=== PATIENT | female | born 1965 | race African-American/Black ===

== ENCOUNTER 2017-07-31 06:46 | Inpatient (IN) ==
[2017-07-31] MEDS ORDERED: INSULIN REGULAR 100 UNIT/ML IV STA ×2 (07:08→07:15)
[2017-07-31] MEDS ORDERED: SODIUM CHLORIDE 0.9% 600 ML IV STA (07:08)
[2017-07-31] MEDS ORDERED: INSULIN REGULAR 100 UNIT/ML ONE (07:11)
[2017-07-31] MEDS ORDERED: MAGNESIUM SULF RIDER 4 GM in PREMIX 1 EACH IV PRN (07:12)
[2017-07-31] MEDS ORDERED: SODIUM BICARB INJ 100 MEQ in STERILE WATER INJ 400 ML IV PRN (07:12)
[2017-07-31] MEDS ORDERED: DEXTROSE 50% 25 GM/50 ML VIAL IV PRN ×2 (07:12)
[2017-07-31] MEDS ORDERED: POTASSIUM CHLORIDE RIDER 10 MEQ in PREMIX 1 EACH IV PRN (07:12)
[2017-07-31] MEDS ORDERED: SODIUM CHLORIDE 0.9% 1,000 ML IV ONE (07:12)
[2017-07-31] MEDS ORDERED: SODIUM PHOSPHATE IV PRN (07:12)
[2017-07-31] MEDS ORDERED: INSULIN REGULAR 100 UNIT/ML IV ONE (07:12)
[2017-07-31] MEDS ORDERED: SODIUM CHLORIDE 0.9% IV PRN (07:12)
[2017-07-31] MEDS ORDERED: MAGNESIUM SULF RIDER 2 GM in PREMIX 1 EACH IV PRN (07:12)
[2017-07-31] MEDS ORDERED: SODIUM CHLORIDE 0.9% 2,000 ML IV STA (07:15)
[2017-07-31] MEDS ORDERED: SODIUM CHLORIDE 0.9% 1,000 ML IV STA (07:15)
[2017-07-31] MEDS ORDERED: ONDANSETRON 4 MG/2 ML VIAL ONE (07:21)
[2017-07-31] MEDS ORDERED: MORPHINE 2 MG/1 ML SYRINGE IV STA (07:21)
[2017-07-31] MEDS ORDERED: MORPHINE 2 MG/1 ML SYRINGE ONE (07:21)
[2017-07-31] MEDS ORDERED: ONDANSETRON 4 MG/2 ML VIAL IV STA (07:21)
[2017-07-31 07:31] LABS: Basophils % 0.1 % (0.0-0.8); Hematocrit 40.1 VOL% (35.7-47.0); Immature Granulocytes % 0.3 %; Immature Granulocytes Absolute 0.04 #; Lymphocytes % 6.6 % (21.3-54.2); Mean Corpuscular HGB Conc 32.4 GM/DL (32-36); Mean Corpuscular Hemoglobin 30 PG (27-34); Mean Corpuscular Volume 93.7 FL (87-102); Mean Platelet Volume 9.5 FL (9.6-12.0); Monocytes # 0.7 10*3/uL (0.11-0.8); Monocytes % 4.3 % (1.7-12.7); Neutrophils # 13.3 10*3/uL (1.4-7.4); Neutrophils % 88.7 % (38.7-73.9); Platelet Count 276 T/CUMM (130-400); Red Blood Count 4.28 MC/CUMM (3.8-5.5); Red Cell Distribution Width 11.3 % (9.3-17.3)
[2017-07-31 07:49] LABS: Apearance,Urine CLEAR (Clear); Bilirubin,Urine Negative (Negative); Blood, Urine Small mg/dL (Negative); Glucose,Urine (UA) >=500 mg/dL (Negative); Ketones,Urine 80 mg/dL (Negative); Mucus,Urine Occasional /LPF (Occasional); Nitrite,Urine Negative (Negative); Protein,Urine Negative; RBC,Urine <1 /HPF (0-4); Squamous Epithelial Cell,Urine Occasional /HPF (0-10); Urine Color Straw (Yellow); Urine Specific Gravity 1.024 (1.001-1.035); Urine Urobilinogen < 2.0 EU/DL (0.2-1.0); WBC,Urine <1 /HPF (0-6)
[2017-07-31 07:52] LABS: Calcium 8.2 MG/DL (8.5-10.1); Osmolality,Calculated 280.8 MOS/KG (273-304); Potassium 4.8 MMOL/L (3.5-5.1)
[2017-07-31] MEDS ORDERED: PROMETHAZINE INJ 12.5 MG in SODIUM CHLORIDE 0.9% 50 ML IV PRN (08:21)
[2017-07-31] MEDS ORDERED: INSULIN REGULAR DRIP 100 ML IV SCH (08:30)
[2017-07-31] MEDS: SODIUM CHLORIDE 0.9% 1,000 ML IV SCH ×2 (09:16→11:33)
[2017-07-31] MEDS: ENOXAPARIN 40 MG/0.4 ML SYRINGE SUBCUT SCH (09:16)
[2017-07-31] MEDS ORDERED: PHENOL 1.4% THROAT SPRAY 177 ML BOTTLE PO PRN (10:59)
[2017-07-31 12:07] LABS: Calcium 6.9 MG/DL (8.5-10.1); Osmolality,Calculated 277.1 MOS/KG (273-304); Potassium 4.2 MMOL/L (3.5-5.1)
[2017-07-31] MEDS ORDERED: SODIUM CHLORIDE 0.9% 1,000 ML IV SCH (12:13)
[2017-07-31] MEDS: CIPROFLOXACIN INJ 400 MG in PREMIX 1 EACH IV SCH (13:34)
[2017-07-31] MEDS: metroNIDAZOLE INJ 500 MG in PREMIX 1 EACH IV SCH ×2 (13:35→18:43)
[2017-07-31] MEDS: DEXTROSE 5% NACL 0.9% 1,000 ML IV SCH ×2 (13:35→18:25)
[2017-07-31 16:45] LABS: Osmolality,Calculated 271.1 MOS/KG (273-304); Potassium 3.8 MMOL/L (3.5-5.1)
[2017-07-31 20:33] LABS: Calcium 7.3 MG/DL (8.5-10.1); Osmolality,Calculated 273.8 MOS/KG (273-304); Potassium 3.1 MMOL/L (3.5-5.1)
[2017-07-31] MEDS: POTASSIUM CHLORIDE 20 MEQ TABLET PO PRN (21:04)
[2017-07-31 23:24] LABS: Calcium 7.2 MG/DL (8.5-10.1); Osmolality,Calculated 270.1 MOS/KG (273-304); Potassium 3.6 MMOL/L (3.5-5.1)
[2017-08-01] MEDS ORDERED: SODIUM CHLORIDE 0.45% 1,000 ML IV SCH (00:13)
[2017-08-01] MEDS ORDERED: DEXTROSE 50% 25 GM/50 ML VIAL IV PRN (00:50)
[2017-08-01] MEDS ORDERED: GLUCAGON 1 MG VIAL IM PRN ×2 (00:50→00:51)
[2017-08-01] MEDS: CIPROFLOXACIN INJ 400 MG in PREMIX 1 EACH IV SCH ×2 (01:06→11:07)
[2017-08-01] MEDS: metroNIDAZOLE INJ 500 MG in PREMIX 1 EACH IV SCH ×2 (01:06→05:27)
[2017-08-01] MEDS: HYDROmorphone 2 MG/1 ML VIAL IV PRN ×2 (01:07→08:49)
[2017-08-01] MEDS: INSULIN REGULAR 100 UNIT/ML SUBCUT SCH ×7 (01:22→21:12)
[2017-08-01] MEDS: DEXTROSE 5% NACL 0.9% 1,000 ML IV SCH (01:58)
[2017-08-01] MEDS: POTASSIUM CHLORIDE 20 MEQ TABLET PO PRN ×2 (03:35→05:42)
[2017-08-01] MEDS ORDERED: INSULIN REGULAR 100 UNIT/ML SUBCUT SCH (05:00)
[2017-08-01 05:14] LABS: Basophils % 0.1 % (0.0-0.8); Eosinophils # 0.1 10*3/uL (0.0-0.87); Eosinophils % 0.9 % (0.00-10.9); Hematocrit 32.5 VOL% (35.7-47.0); Hemoglobin 11.1 GM/DL (12.0-16.0); Immature Granulocytes % 0.2 %; Immature Granulocytes Absolute 0.02 #; Lymphocytes # 1.9 10*3/uL (1.4-4.0); Lymphocytes % 19.1 % (21.3-54.2); Mean Corpuscular HGB Conc 34.2 GM/DL (32-36); Mean Corpuscular Hemoglobin 31 PG (27-34); Mean Platelet Volume 9.2 FL (9.6-12.0); Monocytes # 0.8 10*3/uL (0.11-0.8); Monocytes % 7.5 % (1.7-12.7); Neutrophils # 7.3 10*3/uL (1.4-7.4); Neutrophils % 72.2 % (38.7-73.9); Platelet Count 222 T/CUMM (130-400); Red Blood Count 3.61 MC/CUMM (3.8-5.5); Red Cell Distribution Width 10.6 % (9.3-17.3); White Blood Count 10.1 T/CUMM (4-12)
[2017-08-01 05:33] LABS: Calcium 7.5 MG/DL (8.5-10.1)
[2017-08-01 05:34] LABS: Osmolality,Calculated 265.4 MOS/KG (273-304); Potassium 2.8 MMOL/L (3.5-5.1)
[2017-08-01] MEDS ORDERED: ALUM/MAG/SIMETH/LIDO VISC 1:1 30 ML BOTTLE PO ONE (08:42)
[2017-08-01] MEDS: ENOXAPARIN 40 MG/0.4 ML SYRINGE SUBCUT SCH (08:48)
[2017-08-01] MEDS: POTASSIUM CHLORIDE 20 MEQ TABLET PO SCH ×2 (08:59→10:00)
[2017-08-01] MEDS ORDERED: POTASSIUM PHOS/SOD PHOS POWDER 250 MG PACK PO SCH (09:00)
[2017-08-01] MEDS ORDERED: INFLUENZA VIRUS VACCINE 0.5 ML SYRINGE IM ONE (12:33)
[2017-08-01] MEDS: glipiZIDE 5 MG TABLET PO SCH ×2 (13:20→21:12)
[2017-08-01] MEDS: ASPIRIN EC 325 MG TABLET PO SCH (13:20)
[2017-08-01] MEDS ORDERED: POTASSIUM PHOSPHATE 30 MMOL in SODIUM CHLORIDE 0.9% 250 ML IV ONE (15:00)
[2017-08-01] MEDS: POTASSIUM CHLORIDE RIDER 10 MEQ in PREMIX 1 EACH IV SCH ×3 (15:18→21:12)
[2017-08-01] MEDS: ALUMINUM/MAGNES/SIMETH MAX STR 30 ML UDCUP PO PRN (17:27)
[2017-08-01] MEDS ORDERED: LOVASTATIN 20 MG TABLET PO SCH (21:00)
[2017-08-02] MEDS: POTASSIUM CHLORIDE RIDER 10 MEQ in PREMIX 1 EACH IV SCH (01:27)
[2017-08-02] MEDS ORDERED: ZALEPLON 5 MG CAPSULE PO PRN (01:33)
[2017-08-02 07:15] LABS: Albumin 2.5 G/DL (3.4-5.0); Calcium 7.9 MG/DL (8.5-10.1); Osmolality,Calculated 276.2 MOS/KG (273-304); Potassium 4.2 MMOL/L (3.5-5.1)
[2017-08-02] MEDS: ENOXAPARIN 40 MG/0.4 ML SYRINGE SUBCUT SCH (08:54)
[2017-08-02] MEDS: glipiZIDE 5 MG TABLET PO SCH (08:54)
[2017-08-02] MEDS: ASPIRIN EC 325 MG TABLET PO SCH (08:54)
[2017-08-02] MEDS: INSULIN REGULAR 100 UNIT/ML SUBCUT SCH ×2 (08:57→11:45)
[2017-08-02] MEDS ORDERED: NICOTINE 7 MG/24 HR PATCH TRANSDERM SCH (09:00)
[2017-08-02] MEDS: ALUMINUM/MAGNES/SIMETH MAX STR 30 ML UDCUP PO PRN (09:01)
[2017-08-02] MEDS ORDERED: FLUCONAZOLE 200 MG TABLET PO ONE (10:08)
[2017-08-02] MEDS ORDERED: INFLUENZA VIRUS VACCINE 0.5 ML SYRINGE IM ONE (11:03)
[2017-08-02 11:33] VITALS: BP 122/80
== END 2017-08-02 12:50 | disposition home or self-care (01) | DRG 637 ==
LOC: EDBD → EDUNIT# → N.ED 06:46 → SUPCPDRO 07:25 → N.EDINP 07:25 → N.ICU 07:55 → N.5E 08-01 11:43
PROVIDERS: ADMIT Internal Medicine Geriatric Medicine; ATTEND Internal Medicine Geriatric Medicine

== ENCOUNTER 2020-02-27 15:13 | Inpatient (IN) ==
[2020-02-27] MEDS ORDERED: SODIUM CHLORIDE 0.9% 2,000 ML IV STA (15:54)
[2020-02-27] MEDS ORDERED: ONDANSETRON 4 MG/2 ML VIAL IV STA (15:54)
[2020-02-27] MEDS ORDERED: HYDROmorphone 2 MG/1 ML VIAL IV STA (15:56)
[2020-02-27 16:25] LABS: Calcium 9.8 MG/DL (8.5-10.1); Osmolality,Calculated 310.5 MOS/KG (273-304)
[2020-02-27 16:28] LABS: Basophils # 0.1 10*3/uL (0.0-0.2); Basophils % 0.3 % (0.0-0.8); Hematocrit 44.8 VOL% (35.7-47.0); Hemoglobin 13.5 GM/DL (12.0-16.0); Immature Granulocytes % 1.2 %; Immature Granulocytes Absolute 0.29 #; Lymphocytes # 1.1 10*3/uL (1.4-4.0); Lymphocytes % 4.7 % (21.3-54.2); Mean Corpuscular HGB Conc 30.1 GM/DL (32-36); Mean Corpuscular Volume 99.6 FL (87-102); Mean Platelet Volume 10.4 FL (9.6-12.0); Monocytes % 4.6 % (1.7-12.7); Neutrophils % 89.2 % (38.7-73.9); Platelet Count 272 T/CUMM (130-400); Red Cell Distribution Width 12.6 % (9.3-17.3); White Blood Count 23.8 T/CUMM (4-12)
[2020-02-27] MEDS ORDERED: INSULIN REGULAR 100 UNIT/ML IV ONE ×2 (16:36→17:02)
[2020-02-27] MEDS ORDERED: MAGNESIUM SULF RIDER 4 GM in PREMIX 1 EACH IV PRN (17:02)
[2020-02-27] MEDS ORDERED: SODIUM CHLORIDE 0.9% 1,000 ML IV ONE (17:02)
[2020-02-27] MEDS ORDERED: DEXTROSE 50% 25 GM/50 ML VIAL IV PRN ×2 (17:02)
[2020-02-27] MEDS ORDERED: MAGNESIUM SULF RIDER 2 GM in PREMIX 1 EACH IV PRN (17:02)
[2020-02-27] MEDS ORDERED: SODIUM PHOSPHATE INJ 17 MMOL in SODIUM CHLORIDE 0.9% 250 ML IV PRN (17:02)
[2020-02-27] MEDS ORDERED: SODIUM BICARB INJ 100 MEQ in STERILE WATER INJ 400 ML IV PRN (17:02)
[2020-02-27 17:54] LABS: Band Neutrophils 6 % (0-10); Lymphocytes 4 % (20-55); Platelet Estimate Adequate; Segmented Neutrophils 86 % (50-85); Total Cells Counted 100
[2020-02-27 18:12] LABS: Bilirubin,Urine Negative (Negative); Blood, Urine Small mg/dL (Negative); Glucose,Urine (UA) >=500 mg/dL (Negative); Ketones,Urine 80 mg/dL (Negative); Mucus,Urine Occasional /LPF (Occasional); Nitrite,Urine Negative (Negative); Protein,Urine Negative; Urine Appearance CLEAR (Clear); Urine Color Straw (Yellow); Urine Specific Gravity 1.017 (1.001-1.035); Urine Urobilinogen < 2.0 EU/DL (0.2-1.0); WBC,Urine <1 /HPF (0-6)
[2020-02-27] MEDS ORDERED: INSULIN REGULAR DRIP 100 ML IV SCH (18:30)
[2020-02-27 20:10] LABS: ABG Base Excess -19.1 MMOL/L (-2.5-2.5); ABG HCO3 7.6 MMOL/L (20-26); ABG Oxygen Saturation 97.5 % (95-100); ABG PCO2 21.4 MM HG (35-48); ABG TCO2 8.2 MMOL/L (23-27); Allen Test Positive; Pt O2 Delivery Device Room Air
[2020-02-27] MEDS: SODIUM CHLORIDE 0.9% 1,000 ML IV SCH ×2 (20:11→20:20)
[2020-02-27 20:13] LABS: ABG PH 7.167 (7.35-7.45)
[2020-02-27] MEDS: ENOXAPARIN 30 MG/0.3 ML SYRINGE SUBCUT SCH (20:20)
[2020-02-27 20:36] LABS: Calcium 8.6 MG/DL (8.5-10.1); Osmolality,Calculated 310.5 MOS/KG (273-304)
[2020-02-27] MEDS ORDERED: SODIUM CHLORIDE 0.9% 1,000 ML IV SCH (22:02)
[2020-02-27 23:51] LABS: Calcium 8.1 MG/DL (8.5-10.1); Osmolality,Calculated 298.3 MOS/KG (273-304)
[2020-02-27] MEDS ORDERED: LORazepam 2 MG/1 ML VIAL IV ONE (23:57)
[2020-02-28 01:34] LABS: Calcium 8.1 MG/DL (8.5-10.1); Osmolality,Calculated 291.1 MOS/KG (273-304)
[2020-02-28] MEDS: DEXT 5% NACL 0.45% KCL 20 MEQ 20 MEQ/1,000 ML BAG IV SCH ×2 (02:28→06:32)
[2020-02-28] MEDS ORDERED: SODIUM CHLOR 0.45% KCL 20 MEQ 20 MEQ/1,000 ML BAG IV SCH (04:30)
[2020-02-28 05:14] LABS: Basophils % 0.1 % (0.0-0.8); Hematocrit 36.2 VOL% (35.7-47.0); Hemoglobin 11.6 GM/DL (12.0-16.0); Immature Granulocytes % 0.8 %; Immature Granulocytes Absolute 0.19 #; Lymphocytes # 1.8 10*3/uL (1.4-4.0); Lymphocytes % 7.8 % (21.3-54.2); Mean Platelet Volume 9.8 FL (9.6-12.0); Monocytes % 7.3 % (1.7-12.7); Platelet Count 237 T/CUMM (130-400); Red Blood Count 3.81 MC/CUMM (3.8-5.5); Red Cell Distribution Width 12.1 % (9.3-17.3); White Blood Count 23.2 T/CUMM (4-12)
[2020-02-28 05:21] LABS: Albumin 3.2 G/DL (3.4-5.0); Bilirubin,Total 0.5 MG/DL (0.2-1.0); Osmolality,Calculated 290.1 MOS/KG (273-304); Total Protein 6.5 G/DL (6.4-8.3)
[2020-02-28 05:33] LABS: Band Neutrophils 1 % (0-10); Hypochromasia Slight; Lymphocytes 11 % (20-55); Platelet Estimate Adequate; Segmented Neutrophils 82 % (50-85); Total Cells Counted 100
[2020-02-28] MEDS: ONDANSETRON 4 MG/2 ML VIAL IV PRN ×3 (07:49→19:18)
[2020-02-28] MEDS: PREGABALIN 75 MG CAPSULE PO SCH ×2 (08:29→20:03)
[2020-02-28] MEDS: PANTOPRAZOLE 40 MG TABLET PO SCH (08:29)
[2020-02-28 09:03] LABS: Calcium 8.1 MG/DL (8.5-10.1); Osmolality,Calculated 287.1 MOS/KG (273-304)
[2020-02-28] MEDS ORDERED: SODIUM CHLORIDE 0.45% 1,000 ML IV SCH (10:02)
[2020-02-28] MEDS ORDERED: DEXTROSE 50% 25 GM/50 ML VIAL IV PRN (10:07)
[2020-02-28] MEDS ORDERED: GLUCAGON 1 MG VIAL IM PRN (10:07)
[2020-02-28] MEDS: INSULIN GLARGINE 100 UNIT/ML SUBCUT SCH (10:46)
[2020-02-28] MEDS: SODIUM CHLORIDE 0.45% 1,000 ML IV SCH (11:11)
[2020-02-28] MEDS: INSULIN LISPRO 100 UNIT/ML SUBCUT SCH ×3 (12:12→20:03)
[2020-02-28 14:04] LABS: Calcium 8.2 MG/DL (8.5-10.1); Osmolality,Calculated 282.4 MOS/KG (273-304)
[2020-02-28] MEDS: ENOXAPARIN 30 MG/0.3 ML SYRINGE SUBCUT SCH (17:51)
[2020-02-28] MEDS ORDERED: ACETAMINOPHEN 325 MG TABLET PO PRN (19:00)
[2020-02-29] MEDS: SODIUM CHLORIDE 0.45% 1,000 ML IV SCH (00:13)
[2020-02-29] MEDS: oxyCODONE/ACETAMINOPHEN 5-325 MG TABLET PO PRN ×2 (00:13→09:37)
[2020-02-29] MEDS: INSULIN LISPRO 100 UNIT/ML SUBCUT SCH ×8 (00:13→23:54)
[2020-02-29] MEDS: ONDANSETRON 4 MG/2 ML VIAL IV PRN ×2 (00:20→16:55)
[2020-02-29 03:55] LABS: Basophils % 0.2 % (0.0-0.8); Eosinophils % 0.1 % (0.00-10.9); Hematocrit 35.5 VOL% (35.7-47.0); Hemoglobin 11.5 GM/DL (12.0-16.0); Immature Granulocytes % 0.6 %; Immature Granulocytes Absolute 0.12 #; Lymphocytes # 2.4 10*3/uL (1.4-4.0); Lymphocytes % 12.8 % (21.3-54.2); Mean Corpuscular HGB Conc 32.4 GM/DL (32-36); Mean Corpuscular Volume 91.3 FL (87-102); Mean Platelet Volume 9.8 FL (9.6-12.0); Monocytes % 6.8 % (1.7-12.7); Neutrophils % 79.5 % (38.7-73.9); Platelet Count 199 T/CUMM (130-400); Red Blood Count 3.89 MC/CUMM (3.8-5.5); Red Cell Distribution Width 11.9 % (9.3-17.3); White Blood Count 18.6 T/CUMM (4-12)
[2020-02-29 08:30] LABS: Basophils % 0.2 % (0.0-0.8); Eosinophils % 0.3 % (0.00-10.9); Hemoglobin 12.4 GM/DL (12.0-16.0); Immature Granulocytes % 0.5 %; Immature Granulocytes Absolute 0.08 #; Lymphocytes # 2.6 10*3/uL (1.4-4.0); Lymphocytes % 16.1 % (21.3-54.2); Mean Corpuscular HGB Conc 32.6 GM/DL (32-36); Mean Corpuscular Volume 93.1 FL (87-102); Mean Platelet Volume 9.5 FL (9.6-12.0); Monocytes % 6.1 % (1.7-12.7); Neutrophils % 76.8 % (38.7-73.9); Platelet Count 211 T/CUMM (130-400); Red Blood Count 4.08 MC/CUMM (3.8-5.5); Red Cell Distribution Width 11.9 % (9.3-17.3)
[2020-02-29 08:50] LABS: Calcium 8.4 MG/DL (8.5-10.1)
[2020-02-29] MEDS: PANTOPRAZOLE 40 MG TABLET PO SCH (09:37)
[2020-02-29] MEDS: PREGABALIN 75 MG CAPSULE PO SCH ×2 (09:37→21:08)
[2020-02-29] MEDS: POTASSIUM CHLORIDE RIDER 10 MEQ in PREMIX 1 EACH IV PRN ×3 (09:39→14:06)
[2020-02-29] MEDS: INSULIN GLARGINE 100 UNIT/ML SUBCUT SCH (09:41)
[2020-02-29 10:20] LABS: VLDL CHOLESTEROL 21.8 MG/DL
[2020-02-29] MEDS: METOCLOPRAMIDE 10 MG/2 ML VIAL IV SCH ×2 (13:01→17:47)
[2020-02-29] MEDS: DEXTROSE 5% 1,000 ML IV SCH (13:01)
[2020-02-29] MEDS: HYDROmorphone 2 MG/1 ML VIAL IV PRN ×2 (14:59→21:16)
[2020-02-29] MEDS: ENOXAPARIN 30 MG/0.3 ML SYRINGE SUBCUT SCH (18:27)
[2020-03-01] MEDS: DEXTROSE 5% 1,000 ML IV SCH (03:41)
[2020-03-01] MEDS: INSULIN LISPRO 100 UNIT/ML SUBCUT SCH ×5 (04:29→20:14)
[2020-03-01 06:38] LABS: Basophils % 0.4 % (0.0-0.8); Eosinophils % 0.5 % (0.00-10.9); Hemoglobin 12.7 GM/DL (12.0-16.0); Immature Granulocytes % 0.1 %; Immature Granulocytes Absolute 0.01 #; Lymphocytes # 2.4 10*3/uL (1.4-4.0); Mean Corpuscular HGB Conc 31.8 GM/DL (32-36); Mean Corpuscular Volume 92.2 FL (87-102); Mean Platelet Volume 10.4 FL (9.6-12.0); Monocytes % 9.1 % (1.7-12.7); Neutrophils % 60.9 % (38.7-73.9); Platelet Count 205 T/CUMM (130-400); Red Blood Count 4.34 MC/CUMM (3.8-5.5); Red Cell Distribution Width 11.7 % (9.3-17.3); White Blood Count 8.1 T/CUMM (4-12)
[2020-03-01 06:58] LABS: Calcium 8.7 MG/DL (8.5-10.1); Osmolality,Calculated 273.8 MOS/KG (273-304)
[2020-03-01] MEDS: METOCLOPRAMIDE 10 MG/2 ML VIAL IV SCH ×3 (08:05→16:51)
[2020-03-01] MEDS: PREGABALIN 75 MG CAPSULE PO SCH ×2 (09:00→20:14)
[2020-03-01] MEDS: INSULIN GLARGINE 100 UNIT/ML SUBCUT SCH (09:00)
[2020-03-01] MEDS: PANTOPRAZOLE 40 MG TABLET PO SCH (09:00)
[2020-03-01] MEDS: ENOXAPARIN 30 MG/0.3 ML SYRINGE SUBCUT SCH (17:55)
[2020-03-01] MEDS: oxyCODONE/ACETAMINOPHEN 5-325 MG TABLET PO PRN (18:10)
[2020-03-02] MEDS: INSULIN LISPRO 100 UNIT/ML SUBCUT SCH ×4 (00:17→11:33)
[2020-03-02] MEDS: METOCLOPRAMIDE 10 MG/2 ML VIAL IV SCH ×2 (08:18→11:10)
[2020-03-02] MEDS: oxyCODONE/ACETAMINOPHEN 5-325 MG TABLET PO PRN (08:18)
[2020-03-02 08:45] LABS: Calcium 8.5 MG/DL (8.5-10.1); Osmolality,Calculated 276.1 MOS/KG (273-304)
[2020-03-02] MEDS: PREGABALIN 75 MG CAPSULE PO SCH (09:08)
[2020-03-02] MEDS: PANTOPRAZOLE 40 MG TABLET PO SCH (09:08)
[2020-03-02] MEDS: INSULIN GLARGINE 100 UNIT/ML SUBCUT SCH (09:08)
[2020-03-02] MEDS ORDERED: POTASSIUM CHLORIDE 20 MEQ TABLET PO ONE (10:00)
[2020-03-02] MEDS ORDERED: MAGNESIUM SULF RIDER 2 GM in PREMIX 1 EACH IV ONE (10:00)
[2020-03-02 12:03] VITALS: BP 137/86
[2020-03-02] MEDS ORDERED: INFLUENZA VIRUS VACCINE 0.5 ML SYRINGE IM ONE (13:36)
== END 2020-03-02 13:48 | disposition home health service (06) | DRG 638 ==
LOC: EDUNIT# → EDBD → N.ED 15:13 → SUATTDRO 17:00 → N.EDINP 17:00 → N.ICU 19:43 → N.3E 02-29 14:29
PROVIDERS: ADMIT Family Medicine; ATTEND Family Medicine

== ENCOUNTER 2020-08-22 16:21 | Inpatient (IN) ==
[2020-08-22] MEDS ORDERED: SODIUM CHLORIDE 0.9% 1,000 ML IV STA ×2 (17:06→17:44)
[2020-08-22] MEDS ORDERED: ONDANSETRON 4 MG/2 ML VIAL ONE (17:12)
[2020-08-22 17:14] LABS: Bilirubin,Urine Negative (Negative); Blood, Urine Small mg/dL (Negative); Glucose,Urine (UA) >=500 mg/dL (Negative); Ketones,Urine 80 mg/dL (Negative); Mucus,Urine Occasional /LPF (Occasional); Nitrite,Urine Negative (Negative); Protein,Urine Negative; RBC,Urine 2 /HPF (0-4); Squamous Epithelial Cell,Urine Occasional /HPF (0-10); Urine Appearance CLEAR (Clear); Urine Color Straw (Yellow); Urine Specific Gravity 1.022 (1.001-1.035); Urine Urobilinogen < 2.0 EU/DL (0.2-1.0); WBC,Urine <1 /HPF (0-6)
[2020-08-22] MEDS ORDERED: ONDANSETRON 4 MG/2 ML VIAL IV STA (17:15)
[2020-08-22 17:24] LABS: Basophils # 0.1 10*3/uL (0.0-0.2); Basophils % 0.3 % (0.0-0.8); Hematocrit 46.6 VOL% (35.7-47.0); Immature Granulocytes % 1.2 %; Immature Granulocytes Absolute 0.21 #; Lymphocytes # 1.1 10*3/uL (1.4-4.0); Lymphocytes % 6.2 % (21.3-54.2); Mean Corpuscular HGB Conc 30.3 GM/DL (32-36); Mean Corpuscular Volume 99.8 FL (87-102); Mean Platelet Volume 10.7 FL (9.6-12.0); Monocytes % 2.5 % (1.7-12.7); Neutrophils % 89.8 % (38.7-73.9); Platelet Count 296 T/CUMM (130-400); Red Blood Count 4.67 MC/CUMM (3.8-5.5); Red Cell Distribution Width 12.4 % (9.3-17.3); White Blood Count 17.5 T/CUMM (4-12)
[2020-08-22 17:25] LABS: Albumin 4.9 G/DL (3.4-5.0); Bilirubin,Total 0.6 MG/DL (0.2-1.0); Calcium 10.4 MG/DL (8.5-10.1); Osmolality,Calculated 303.5 MOS/KG (273-304); Potassium 4.5 MMOL/L (3.5-5.1); Total Protein 9.1 G/DL (6.4-8.2)
[2020-08-22 17:29] LABS: Hemoglobin 14.1 GM/DL (12.0-16.0)
[2020-08-22] MEDS ORDERED: INSULIN REGULAR 100 UNIT/ML IV ONE ×2 (17:34→17:43)
[2020-08-22] MEDS ORDERED: ALUMINUM/MAGNES/SIMETH MAX STR 30 ML UDCUP PO PRN (17:39)
[2020-08-22] MEDS ORDERED: ONDANSETRON 4 MG/2 ML VIAL IV PRN (17:39)
[2020-08-22] MEDS ORDERED: ALBUTEROL 2.5 MG/3 ML NEB RESP TX PRN (17:39)
[2020-08-22] MEDS ORDERED: MAGNESIUM SULF RIDER 4 GM in PREMIX 1 EACH IV PRN (17:43)
[2020-08-22] MEDS ORDERED: SODIUM CHLORIDE 0.9% 1,000 ML IV ONE (17:43)
[2020-08-22] MEDS ORDERED: DEXTROSE 50% 25 GM/50 ML VIAL IV PRN ×2 (17:43)
[2020-08-22] MEDS ORDERED: SODIUM PHOSPHATE INJ 14.3 MMOL in SODIUM CHLORIDE 0.9% 250 ML IV PRN (17:43)
[2020-08-22] MEDS ORDERED: SODIUM BICARB INJ 100 MEQ in STERILE WATER INJ 400 ML IV PRN (17:43)
[2020-08-22 17:47] LABS: Barbiturates Screen,Urine Negative (Negative); Benzodiazepines Screen,Urine Negative (Negative); Cannabinoid Screen,Urine Negative (Negative); Opiate Screen,Urine Negative (Negative); Phencyclidine Screen,Urine Negative (Negative)
[2020-08-22] MEDS: SODIUM CHLORIDE 0.9% 1,000 ML IV SCH ×4 (18:00→23:20)
[2020-08-22] MEDS: INSULIN REGULAR DRIP 100 ML IV SCH (18:49)
[2020-08-22 20:00] LABS: ABG HCO3 13.9 MMOL/L (20-26); ABG Oxygen Saturation 96.5 % (95-100); ABG PCO2 28.4 MM HG (35-48); ABG PH 7.307 (7.35-7.45); ABG PO2 97.3 MM HG (80-95); ABG TCO2 14.8 MMOL/L (23-27); Allen Test Positive; Pt O2 Delivery Device Room Air
[2020-08-22 20:27] LABS: Calcium 9.2 MG/DL (8.5-10.1); Osmolality,Calculated 295.1 MOS/KG (273-304); Potassium 4.2 MMOL/L (3.5-5.1)
[2020-08-22] MEDS: DIAZEPAM 10 MG/2 ML SYRINGE IV PRN (20:28)
[2020-08-22 21:09] LABS: ABG Base Excess -7.8 MMOL/L (-2.5-2.5); ABG HCO3 17.4 MMOL/L (20-26); ABG Oxygen Saturation 69.8 % (95-100); ABG PCO2 34.5 MM HG (35-48); ABG PH 7.321 (7.35-7.45); ABG PO2 41.9 MM HG (80-95); ABG TCO2 18.5 MMOL/L (23-27)
[2020-08-22] MEDS: FAMOTIDINE 20 MG/2 ML VIAL IV SCH (21:38)
[2020-08-22] MEDS: fentaNYL 50 MCG/HR PATCH TRANSDERM SCH (21:39)
[2020-08-22] MEDS ORDERED: INFLUENZA VIRUS VACCINE 0.5 ML SYRINGE IM ONE (22:25)
[2020-08-22] MEDS ORDERED: SODIUM CHLORIDE 0.9% 1,000 ML IV SCH (22:44)
[2020-08-22] MEDS: hydrALAZINE 20 MG/1 ML VIAL IV PRN (23:40)
[2020-08-23] MEDS: METOCLOPRAMIDE 10 MG/2 ML VIAL IV SCH ×4 (01:20→18:01)
[2020-08-23] MEDS: SODIUM CHLORIDE 0.9% 1,000 ML IV SCH ×2 (02:00→08:30)
[2020-08-23 02:02] LABS: Osmolality,Calculated 286.8 MOS/KG (273-304); Potassium 3.9 MMOL/L (3.5-5.1)
[2020-08-23] MEDS: MORPHINE 4 MG/1 ML VIAL IV PRN ×5 (03:20→19:50)
[2020-08-23] MEDS: DIAZEPAM 10 MG/2 ML SYRINGE IV PRN (04:33)
[2020-08-23 05:22] LABS: Basophils % 0.1 % (0.0-0.8); Hematocrit 37.2 VOL% (35.7-47.0); Hemoglobin 11.4 GM/DL (12.0-16.0); Immature Granulocytes % 0.7 %; Immature Granulocytes Absolute 0.14 #; Lymphocytes # 2.1 10*3/uL (1.4-4.0); Lymphocytes % 10.1 % (21.3-54.2); Mean Corpuscular HGB Conc 30.6 GM/DL (32-36); Mean Corpuscular Volume 95.1 FL (87-102); Mean Platelet Volume 9.7 FL (9.6-12.0); Monocytes % 8.8 % (1.7-12.7); Neutrophils % 80.3 % (38.7-73.9); Platelet Count 265 T/CUMM (130-400); Red Blood Count 3.91 MC/CUMM (3.8-5.5); Red Cell Distribution Width 12.1 % (9.3-17.3); White Blood Count 20.6 T/CUMM (4-12)
[2020-08-23 05:41] LABS: Osmolality,Calculated 281.8 MOS/KG (273-304); Potassium 4.1 MMOL/L (3.5-5.1)
[2020-08-23 05:43] LABS: Band Neutrophils 4 % (0-10); Hypochromasia 1+; Lymphocytes 10 % (20-55); Segmented Neutrophils 83 % (50-85); Total Cells Counted 100
[2020-08-23 05:44] LABS: Microcytosis 1+; Platelet Estimate Normal
[2020-08-23] MEDS: FAMOTIDINE 20 MG/2 ML VIAL IV SCH ×2 (06:19→18:01)
[2020-08-23] MEDS: MAGNESIUM SULF RIDER 2 GM in PREMIX 1 EACH IV PRN (06:21)
[2020-08-23] MEDS: ACETAMINOPHEN 325 MG TABLET PO PRN (08:49)
[2020-08-23] MEDS ORDERED: DIAZEPAM 10 MG/2 ML SYRINGE IV PRN (09:15)
[2020-08-23] MEDS: DEXTROSE 5% LACTATED RINGERS 1,000 ML IV SCH ×3 (09:30→19:45)
[2020-08-23] MEDS ORDERED: SODIUM CHLORIDE 0.45% 1,000 ML IV SCH (10:44)
[2020-08-23 10:50] LABS: Calcium 8.5 MG/DL (8.5-10.1); Osmolality,Calculated 285.8 MOS/KG (273-304); Potassium 3.9 MMOL/L (3.5-5.1)
[2020-08-23 15:41] LABS: Calcium 8.4 MG/DL (8.5-10.1); Osmolality,Calculated 283.7 MOS/KG (273-304); Potassium 3.9 MMOL/L (3.5-5.1)
[2020-08-23] MEDS: INSULIN REGULAR DRIP 100 ML IV SCH (18:01)
[2020-08-24] MEDS: DEXTROSE 5% LACTATED RINGERS 1,000 ML IV SCH ×3 (00:42→10:50)
[2020-08-24] MEDS: INSULIN REGULAR DRIP 100 ML IV SCH (04:23)
[2020-08-24 05:23] LABS: Blood Urea Nitrogen 9 MG/DL (7-18); Calcium 8.4 MG/DL (8.5-10.1); Carbon Dioxide 23 MMOL/L (21-32); Estimated Glom Filtration Rate 98 ML/MIN; Glucose 155 MG/DL (74-106); Osmolality,Calculated 280.4 MOS/KG (273-304); Potassium 3.5 MMOL/L (3.5-5.1); Sodium 140 MMOL/L (136-145); Troponin I < 0.015 NG/ML (0.00-0.045)
[2020-08-24] MEDS: FAMOTIDINE 20 MG/2 ML VIAL IV SCH ×2 (05:43→17:25)
[2020-08-24] MEDS: METOCLOPRAMIDE 10 MG/2 ML VIAL IV SCH ×4 (05:46→17:25)
[2020-08-24] MEDS: POTASSIUM CHLORIDE RIDER 10 MEQ in PREMIX 1 EACH IV PRN ×3 (05:48→08:10)
[2020-08-24] MEDS: MAGNESIUM SULF RIDER 2 GM in PREMIX 1 EACH IV PRN (05:48)
[2020-08-24] MEDS ORDERED: DIAZEPAM 5 MG TABLET PO PRN (08:59)
[2020-08-24] MEDS: ASPIRIN CHEW 81 MG TABLET PO SCH (09:30)
[2020-08-24] MEDS: INSULIN LISPRO 100 UNIT/ML SUBCUT SCH ×3 (12:08→20:47)
[2020-08-24] MEDS: ACETAMINOPHEN 325 MG TABLET PO PRN (20:46)
[2020-08-24] MEDS ORDERED: SIMVASTATIN 10 MG TABLET PO SCH (21:00)
[2020-08-24] MEDS: oxyCODONE/ACETAMINOPHEN 5-325 MG TABLET PO PRN (22:28)
[2020-08-25] MEDS: METOCLOPRAMIDE 10 MG/2 ML VIAL IV SCH ×2 (00:59→05:46)
[2020-08-25] MEDS: DEXTROSE 5% LACTATED RINGERS 1,000 ML IV SCH ×2 (03:01→07:42)
[2020-08-25 04:58] LABS: Basophils % 0.4 % (0.0-0.8); Eosinophils # 0.1 10*3/uL (0.0-0.87); Eosinophils % 1.6 % (0.00-10.9); Hematocrit 37.8 VOL% (35.7-47.0); Hemoglobin 12.1 GM/DL (12.0-16.0); Immature Granulocytes % 0.2 %; Immature Granulocytes Absolute 0.01 #; Lymphocytes # 2.4 10*3/uL (1.4-4.0); Lymphocytes % 42.8 % (21.3-54.2); Mean Corpuscular Volume 93.6 FL (87-102); Monocytes % 8.7 % (1.7-12.7); Neutrophils % 46.3 % (38.7-73.9); Platelet Count 200 T/CUMM (130-400); Red Blood Count 4.04 MC/CUMM (3.8-5.5); Red Cell Distribution Width 11.5 % (9.3-17.3); White Blood Count 5.6 T/CUMM (4-12)
[2020-08-25 05:30] LABS: Albumin 3.1 G/DL (3.4-5.0); Bilirubin,Total 1.2 MG/DL (0.2-1.0); Calcium 7.9 MG/DL (8.5-10.1); Potassium 3.8 MMOL/L (3.5-5.1); Total Protein 5.7 G/DL (6.4-8.2)
[2020-08-25] MEDS: FAMOTIDINE 20 MG/2 ML VIAL IV SCH (05:46)
[2020-08-25] MEDS: INSULIN LISPRO 100 UNIT/ML SUBCUT SCH ×5 (07:57→15:17)
[2020-08-25] MEDS: INSULIN GLARGINE 100 UNIT/ML SUBCUT SCH ×2 (07:58→08:07)
[2020-08-25] MEDS: hydrALAZINE 20 MG/1 ML VIAL IV PRN (07:58)
[2020-08-25] MEDS ORDERED: LACTATED RINGERS 1,000 ML IV SCH (08:00)
[2020-08-25] MEDS: ASPIRIN CHEW 81 MG TABLET PO SCH (08:07)
[2020-08-25] MEDS: fentaNYL 50 MCG/HR PATCH TRANSDERM SCH (08:07)
[2020-08-25] MEDS: oxyCODONE/ACETAMINOPHEN 5-325 MG TABLET PO PRN ×2 (08:35→15:27)
[2020-08-25 16:12] VITALS: BP 143/95
== END 2020-08-25 17:14 | disposition home or self-care (01) | DRG 638 ==
LOC: EDBD → EDUNIT# → N.ED 16:21 → N.EDINP 17:39 → SUATTDRO 17:39 → N.ICU 19:37 → N.5E 08-24 10:44
PROVIDERS: ADMIT Internal Medicine; ATTEND Internal Medicine Geriatric Medicine